=== PATIENT | male | born 1960 | race Caucasian/White ===

== ENCOUNTER → 2019-09-08 12:24 | Outpatient (BNVA) | payer OTHER, SELFPAY | PROVIDERS: Family Provider Family Medicine; PCP Family Medicine; Visit Provider Family Medicine | DX: E13.9 Other specified diabetes mellitus without complications (principal); E11.9 Type 2 diabetes mellitus without complications; N40.0 Benign prostatic hyperplasia without lower urinary tract symptoms | CPT/HCPCS: 80048; 83036; G0103 ==

== ENCOUNTER 2020-12-18 08:00 | Outpatient (RCR) | payer OTHER, SELFPAY ==
[2020-12-11 08:35] VITALS: BP 127/90; PULSE 112; RESP 20; TEMP 36.4; O2SAT 97
[2020-12-11 09:00] VITALS: BMI 37.4
[2020-12-11] MEDS: cefTRIAXone 2,000 MG in sodium chloride 0.9% (plus) 50 ML 100 MG IV (09:25)
--- NOTE | 2020-12-11 09:28 | PC.NURSE ---
both lumens of picc line flushed with 10ml of saline flush with good blood return.
[2020-12-12 08:20] VITALS: BP 131/82; PULSE 112; RESP 20; TEMP 36.6; O2SAT 96
[2020-12-12] MEDS: cefTRIAXone 2,000 MG in sodium chloride 0.9% (plus) 50 ML 100 MG IV (08:35)
[2020-12-13] MEDS: cefTRIAXone 2,000 MG in sodium chloride 0.9% (plus) 50 ML 100 MG IV (08:24)
[2020-12-13 08:30] VITALS: BP 139/95; PULSE 117; RESP 18; TEMP 36.3; O2SAT 95
[2020-12-14 08:20] VITALS: BP 149/96; PULSE 111; RESP 18; TEMP 36.4; O2SAT 96
[2020-12-14] MEDS: cefTRIAXone 2,000 MG in sodium chloride 0.9% (plus) 50 ML 100 MG IV (08:25)
[2020-12-15] MEDS: cefTRIAXone 2,000 MG in sodium chloride 0.9% (plus) 50 ML 100 MG IV (08:12)
[2020-12-15 08:18] VITALS: BP 154/98; PULSE 107; RESP 18; TEMP 36.4; O2SAT 96
[2020-12-16 08:10] VITALS: BP 164/97; PULSE 102; RESP 18; TEMP 37.1; O2SAT 96
[2020-12-16] MEDS: cefTRIAXone 2,000 MG in sodium chloride 0.9% (plus) 50 ML 100 MG IV (08:24)
--- NOTE | 2020-12-16 08:55 | PC.NURSE ---
Both lumens flushed with normal saline flush prior to infusion. after infusion line flushed an d new caps applied 2x2 and coban applied for comfort.
[2020-12-17] MEDS: cefTRIAXone 2,000 MG in sodium chloride 0.9% (plus) 50 ML 100 MG IV (08:23)
[2020-12-17 08:27] VITALS: BP 138/95; PULSE 94; RESP 18; TEMP 36.2; O2SAT 96
[2020-12-18 08:00] VITALS: BP 170/106; PULSE 112; RESP 18; TEMP 36.6; O2SAT 95
[2020-12-18] MEDS: cefTRIAXone 2,000 MG in sodium chloride 0.9% (plus) 50 ML 100 MG IV (08:07)
== END 2020-12-18 23:59 | disposition home or self-care (01) ==
LOC: GILAB 08:00
PROVIDERS: PCP Family Medicine; Visit Provider Internal Medicine Infectious Disease
DX: J43.9 Emphysema, unspecified (principal)
CPT/HCPCS: 36569; 96365; J0696

== ENCOUNTER 2021-01-04 08:06 | Outpatient (RCR) | payer OTHER, SELFPAY ==
[2020-12-19 08:04] VITALS: BP 158/108; PULSE 115; RESP 20; TEMP 36.2; O2SAT 95
[2020-12-19] MEDS: cefTRIAXone 2,000 MG in sodium chloride 0.9% (plus) 50 ML 100 MG IV (08:08)
[2020-12-20] MEDS: cefTRIAXone 2,000 MG in sodium chloride 0.9% (plus) 50 ML 100 MG IV (06:05)
[2020-12-20 06:08] VITALS: BP 150/102; PULSE 108; RESP 20; TEMP 36.3; O2SAT 95
[2020-12-23] MEDS: cefTRIAXone 2,000 MG in sodium chloride 0.9% (plus) 50 ML 100 MG IV (10:00)
[2020-12-24] MEDS: cefTRIAXone 2,000 MG in sodium chloride 0.9% (plus) 50 ML 100 MG IV (08:40)
[2020-12-24 09:01] VITALS: BP 164/99; PULSE 96; RESP 18; O2SAT 95
[2020-12-25] MEDS: cefTRIAXone 2,000 MG in sodium chloride 0.9% (plus) 50 ML 100 MG IV (08:19)
[2020-12-25 08:26] VITALS: BP 170/112; PULSE 107; RESP 18; TEMP 36.9; O2SAT 97
[2020-12-26 08:05] VITALS: BP 156/107; PULSE 112; RESP 20; TEMP 36.4; O2SAT 96
[2020-12-26] MEDS: cefTRIAXone 2,000 MG in sodium chloride 0.9% (plus) 50 ML 100 MG IV (08:12)
[2020-12-27 08:07] VITALS: BP 159/105; PULSE 117; RESP 19; TEMP 36.3; O2SAT 96
[2020-12-27] MEDS: cefTRIAXone 2,000 MG in sodium chloride 0.9% (plus) 50 ML 100 MG IV (08:16)
[2020-12-28 08:12] VITALS: BP 171/105; PULSE 112; RESP 18; TEMP 36.3; O2SAT 97
[2020-12-28] MEDS: cefTRIAXone 2,000 MG in sodium chloride 0.9% (plus) 50 ML 100 MG IV (08:20)
[2020-12-29 08:07] VITALS: BP 159/105; PULSE 106; RESP 18; TEMP 36.3; O2SAT 97
[2020-12-29] MEDS: cefTRIAXone 2,000 MG in sodium chloride 0.9% (plus) 50 ML 100 MG IV (08:09)
[2020-12-30] MEDS: cefTRIAXone 2,000 MG in sodium chloride 0.9% (plus) 50 ML 100 MG IV (08:15)
[2020-12-30 08:18] VITALS: BP 175/111; PULSE 108; RESP 17; TEMP 36.6; O2SAT 94
[2020-12-31] MEDS: cefTRIAXone 2,000 MG in sodium chloride 0.9% (plus) 50 ML 100 MG IV (08:29)
[2020-12-31 08:44] VITALS: BP 164/100; PULSE 97; RESP 18; TEMP 36.7; O2SAT 95
--- NOTE | 2020-12-31 08:46 | PC.NURSE ---
patients bp is 164/100. i informed patient that this was very high. he said it has been running high like that since he was discharged from the hospital last weekend. he says he has an appointment with his pcp on thursday.
[2020-12-31 08:48] LABS: Basophils % 0.7 %; Eosinophils # 0.3 10^3/uL (0.0-0.8); Eosinophils % 4.8 %; Hemoglobin 11.3 g/dL (11.7-16.6); Lymphocytes # 1.7 10^3/uL (0.8-4.8); Mean Corpuscular HGB Conc 31.4 g/dL (30.0-36.0); Mean Corpuscular Volume 89.1 fl (80-94); Mean Platelet Volume 10.4 fL (7.4-10.4); Monocytes # 0.4 10^3/uL (0.2-0.9); Monocytes % 7.7 %; Neutrophils # 3.03 10^3/uL (1.8-7.7); Neutrophils % 55.4 %; Nucleated Red Blood Cells % 0 %; Platelet Count 185 10^3/cmm (130-400); Red Blood Count 4.04 10^6/uL (4.1-5.3); Red Cell Distribution Width 15.4 % (12.1-15.1); White Blood Count 5.5 10^3/uL (4.0-10.0)
[2020-12-31 09:18] LABS: Alanine Aminotransferase 10 U/L (0-41); Albumin Level 3.7 g/dL (3.5-5.2); Alkaline Phosphatase 40 IU/L (40-130); Anion Gap 13.7 (5-19); Aspartate Amino Transferase 13 U/L (0-40); Blood Urea Nitrogen 11 mg/dL (8-23); Calcium 8.6 mg/dL (8.5-10.5); Carbon Dioxide 29 mmol/L (22-29); Chloride 99 mmol/L (98-107); Globulin 2.9 g/dL (1.3-4.6); Glomerular Filtration Rate 168.5 mL/min (90-130); Glucose 243 mg/dL (65-115); Osmolality Calculated 293 mOsm/kg (285-295); Potassium 3.7 mmol/L (3.5-5.1); Sodium 138 mmol/L (136-145); Total Bilirubin 0.4 mg/dL (0.15-1.2); Total Protein 6.6 g/dL (6.6-8.7)
[2021-01-01 08:15] VITALS: BP 178/111; PULSE 101; RESP 20; TEMP 36.3; O2SAT 97
[2021-01-01] MEDS: cefTRIAXone 2,000 MG in sodium chloride 0.9% (plus) 50 ML 100 MG IV (08:15)
[2021-01-02] MEDS: cefTRIAXone 2,000 MG in sodium chloride 0.9% (plus) 50 ML 100 MG IV (08:20)
[2021-01-02 08:23] VITALS: BP 173/104; PULSE 95; RESP 18; TEMP 36.2; O2SAT 95
[2021-01-03] MEDS: cefTRIAXone 2,000 MG in sodium chloride 0.9% (plus) 50 ML 100 MG IV (08:15)
[2021-01-03 08:37] VITALS: BP 176/104; PULSE 88; RESP 18; TEMP 36.3; O2SAT 98
[2021-01-04 08:10] VITALS: BP 152/96; PULSE 91; RESP 18; TEMP 36.2; O2SAT 97
[2021-01-04] MEDS: cefTRIAXone 2,000 MG in sodium chloride 0.9% (plus) 50 ML 100 MG IV (08:19)
--- NOTE | 2021-01-04 08:50 | PC.NURSE ---
Final dose of Ceftriaxone 2 gm IV given. PICC line flushed with 10 mL NS each port and dc'd as ordered. Catheter tip intact. Site clear without redness or drainage. No hematoma or bleeding noted. Tolerated procedure well. Pt educated on signs and symptoms of infection and complication. Verbalized understanding.
== END 2021-01-17 23:59 | disposition home or self-care (01) ==
LOC: GILAB 08:06
PROVIDERS: Hospitalist; PCP Family Medicine; Visit Provider Internal Medicine Infectious Disease
DX: J43.9 Emphysema, unspecified (principal)
CPT/HCPCS: 36569; 36592; 80053; 85025; 96365; J0696

== ENCOUNTER 2021-01-23 | Outpatient (CLI) | payer OTHER, SELFPAY | END 2021-01-23 00:01 | disposition home or self-care (01) | LOC: RAD 10-15 09:45 | PROVIDERS: PCP Family Medicine; Visit Provider Family Medicine | DX: B94.8 Sequelae of other specified infectious and parasitic diseases (principal) | CPT/HCPCS: 85018 ==

== ENCOUNTER → 2021-12-09 10:03 | Outpatient (BNVA) | payer OTHER, SELFPAY | PROVIDERS: PCP Family Medicine; Visit Provider Family Medicine | DX: I10 Essential (primary) hypertension (principal); E13.9 Other specified diabetes mellitus without complications; Z00.00 Encounter for general adult medical examination without abnormal findings | CPT/HCPCS: 80053; 83036; 85025 ==

== ENCOUNTER → 2023-06-11 13:13 | Outpatient (BNVA) | payer OTHER, SELFPAY | PROVIDERS: PCP Family Medicine; Visit Provider Family Medicine | DX: E13.9 Other specified diabetes mellitus without complications (principal); I10 Essential (primary) hypertension | CPT/HCPCS: 80053; 83036; 85025 ==

== ENCOUNTER → 2024-07-07 13:08 | Outpatient (BNVA) | payer OTHER, SELFPAY | PROVIDERS: PCP Family Medicine; Visit Provider Family Medicine | DX: Z00.00 Encounter for general adult medical examination without abnormal findings (principal); E13.9 Other specified diabetes mellitus without complications; I10 Essential (primary) hypertension | CPT/HCPCS: 80053; 83036; 85025 ==